=== PATIENT | female | born 1945 | race Caucasian/White ===

== ENCOUNTER → 2016-07-21 | Outpatient (CLI) | payer MEDICARE, OTHER ==
[~2016-07-21] MED LIST: AMIT25TA9 PO; AMOX-355 PO; ASPI-999 PO; ATEN-155 PO; ATEN25TA PO; BUTA1CAP3 PO; BUTA1TAB9 PO; CARB100T PO; CARB100T48 PO; CHOL20002 PO; CHOL20003 PO; CLON0.1T PO; CLON0.2T PO; CLOP75TA28 PO; CYAN10006 PO; CYAN500T2 PO; DIPH25CA79 PO; DOXA2TAB2 PO; DOXA4TAB2 PO; EST.625T PO; ESTR1TAB24 PO; FLDR.1T PO; FLUT16SP22 NS; FLUT1DIS26 INH; FURO40TA4 PO; FURO80TA3 PO; GUAI600T43 PO; HYDR5SYR PO; INDA2.5T2 PO; IPRA3AMP IH; IPRA3AMP INH; LACT1CAP64 PO; LEVO112T55 PO; LEVO250T46 PO; LEVO750T39 PO; LISI10TA2 PO; LORA10TA7 PO; LVT.025T PO; MAGN250T13 PO; MAGN400T39 PO; MELO15TA39 PO; NEBU1EAC10 MC; NEBU1EAC2 MC; NF-CARBAMX PO; NITR0.3T7 SL; NYST15CR TOP; POTA10TA14 PO; POTA10TA6 PO; PRAV20TA3 PO; PRD20T PO; PYRI100T2 PO; PYRI200T5 PO; SENN1TAB93 PO
--- NOTE | 2016-07-21 14:18 | Diagnostic Imaging Report ---
Bilateral renal ultrasound. INDICATION: Renal failure. FINDINGS: The right kidney is 7.9 cm and the left kidney is 6.8 cm in length. There is no hydronephrosis or focal lesion. The urinary bladder is not well distended with no definite abnormality. IMPRESSION: Mild atrophy of the kidneys. No hydronephrosis. Dictated by: Dictated on workstation # [id number]
== END ==
LOC: RAD 12:59
PROVIDERS: ATTEND Internal Medicine Cardiovascular Disease
DX: I73.89 Other specified peripheral vascular diseases (principal); I15.0 Renovascular hypertension; I13.0 Hypertensive heart and chronic kidney disease with heart failure and stage 1 through stage 4 chronic kidney disease, or unspecified chronic kidney disease; I70.1 Atherosclerosis of renal artery; N18.3 Chronic kidney disease, stage 3 (moderate); J43.8 Other emphysema; Z87.891 Personal history of nicotine dependence; I50.33 Acute on chronic diastolic (congestive) heart failure
CPT/HCPCS: 76770; 76775; 93923

== ENCOUNTER → 2016-09-24 | Outpatient (CLI) | payer MEDICARE, OTHER ==
[2016-09-24 08:48] LABS: BASOPHILS % (AUTO) 0 % (0-10); EOSINOPHILS # (AUTO) 0.2 10^3/uL (0.0-0.3); EOSINOPHILS % (AUTO) 3 % (0-10); LYMPHOCYTES # (AUTO) 1.1 X 10^3 (1.0-4.0); LYMPHOCYTES % (AUTO) 20 % (12-44); MEAN CORPUSCULAR HEMOGLOBIN 33 PG (25-34); MEAN CORPUSCULAR HGB CONC 33 G/DL (32-36); MEAN CORPUSCULAR VOLUME 99 FL (80-99); MEAN PLATELET VOLUME 10.1 FL (7.4-10.4); MONOCYTES # (AUTO) 0.3 X 10^3 (0.0-1.0); MONOCYTES % (AUTO) 5 % (0-12); NEUTROPHILS % (AUTO) 72 % (42-75); PLATELET COUNT 254 10^3/uL (130-400); RED BLOOD COUNT 3.22 10^6/uL (4.35-5.85); WHITE BLOOD COUNT 5.6 10^3/uL (4.3-11.0)
[2016-09-24 09:06] LABS: BILIRUBIN,TOTAL 0.3 MG/DL (0.1-1.0); CALCIUM 8.8 MG/DL (8.5-10.1); CREATININE SERUM 2.1 MG/DL (0.60-1.30); MAGNESIUM 2.1 MG/DL (1.8-2.4); TOTAL PROTEIN 6.8 G/DL (6.4-8.2)
--- NOTE | 2016-09-24 09:07 | Diagnostic Imaging Report ---
INDICATION: Shortness of air. COMPARISON: 05/22/2016 FINDINGS: Frontal and lateral radiographic views of the chest were obtained and demonstrate interval improved aeration of the left lung base. Left hemidiaphragm remains partially obscured. Right lung is relatively clear. There is no large effusion on the right. No pneumothorax is seen on either side. Cardiac silhouette and pulmonary vasculature are mildly prominent. Bony structures show no acute abnormalities. IMPRESSION: 1. Mild cardiomegaly and pulmonary vascular congestion. 2. Improved aeration in the left base, with probable residual effusion with atelectasis and/or infiltrate. Dictated by: Dictated on workstation # [id number]
[2016-09-24 09:26] LABS: THYROID STIMULATING HORMONE 12.76 UIU/ML (0.35-4.94)
== END ==
LOC: RAD 08:22
PROVIDERS: ATTEND Nurse Practitioner Family
DX: I10 Essential (primary) hypertension (principal); I35.1 Nonrheumatic aortic (valve) insufficiency; I25.10 Atherosclerotic heart disease of native coronary artery without angina pectoris; R06.02 Shortness of breath
CPT/HCPCS: 36415; 71020; 80053; 83735; 83880; 84443; 85025

== ENCOUNTER → 2016-09-28 | Outpatient (CLI) | payer MEDICARE, OTHER ==
[2016-09-28 12:02] LABS: BASOPHILS % (AUTO) 1 % (0-10); EOSINOPHILS # (AUTO) 0.1 10^3/uL (0.0-0.3); EOSINOPHILS % (AUTO) 2 % (0-10); LYMPHOCYTES # (AUTO) 0.9 X 10^3 (1.0-4.0); LYMPHOCYTES % (AUTO) 17 % (12-44); MEAN CORPUSCULAR HEMOGLOBIN 32 PG (25-34); MEAN CORPUSCULAR HGB CONC 33 G/DL (32-36); MEAN CORPUSCULAR VOLUME 96 FL (80-99); MEAN PLATELET VOLUME 10.1 FL (7.4-10.4); MONOCYTES # (AUTO) 0.3 X 10^3 (0.0-1.0); MONOCYTES % (AUTO) 6 % (0-12); NEUTROPHILS % (AUTO) 75 % (42-75); PLATELET COUNT 282 10^3/uL (130-400); RED BLOOD COUNT 3.35 10^6/uL (4.35-5.85); RED CELL DISTRIBUTION WIDTH 14.4 % (10.0-14.5); WHITE BLOOD COUNT 5.3 10^3/uL (4.3-11.0)
[2016-09-28 12:23] LABS: ALBUMIN 4.1 G/DL (3.2-4.5); BILIRUBIN,TOTAL 0.3 MG/DL (0.1-1.0); CALCIUM 8.6 MG/DL (8.5-10.1); CREATININE SERUM 2.05 MG/DL (0.60-1.30); MAGNESIUM 2.3 MG/DL (1.8-2.4)
[2016-09-28 12:42] LABS: THYROID STIMULATING HORMONE 2.31 UIU/ML (0.35-4.94)
== END ==
LOC: LAB 11:49
PROVIDERS: ATTEND Nurse Practitioner Family
DX: I10 Essential (primary) hypertension (principal); I25.10 Atherosclerotic heart disease of native coronary artery without angina pectoris; R06.02 Shortness of breath; I35.1 Nonrheumatic aortic (valve) insufficiency
CPT/HCPCS: 36415; 80053; 83735; 83880; 84443; 85025

== ENCOUNTER → 2016-10-13 | Outpatient (CLI) | payer MEDICARE, OTHER ==
[2016-10-13 17:22] LABS: CREATININE SERUM 2.35 MG/DL (0.60-1.30); MAGNESIUM 2.3 MG/DL (1.8-2.4)
== END ==
LOC: LAB 16:52
PROVIDERS: ATTEND Nurse Practitioner Family
DX: I50.33 Acute on chronic diastolic (congestive) heart failure (principal); I35.1 Nonrheumatic aortic (valve) insufficiency; I70.1 Atherosclerosis of renal artery; I25.10 Atherosclerotic heart disease of native coronary artery without angina pectoris; I65.23 Occlusion and stenosis of bilateral carotid arteries
CPT/HCPCS: 36415; 80048; 83735

== ENCOUNTER → 2016-10-19 | Outpatient (CLI) | payer MEDICARE, OTHER ==
[2016-10-19 14:08] LABS: CREATININE SERUM 1.98 MG/DL (0.60-1.30); MAGNESIUM 2.5 MG/DL (1.8-2.4); POTASSIUM 3.1 MMOL/L (3.6-5.0)
== END ==
LOC: LAB 13:19
PROVIDERS: ATTEND Nurse Practitioner Family
DX: I11.0 Hypertensive heart disease with heart failure (principal); I50.33 Acute on chronic diastolic (congestive) heart failure; I25.10 Atherosclerotic heart disease of native coronary artery without angina pectoris; I70.1 Atherosclerosis of renal artery; R06.00 Dyspnea, unspecified
CPT/HCPCS: 36415; 80048; 83735

== ENCOUNTER → 2016-10-26 | Outpatient (CLI) | payer MEDICARE, OTHER ==
[2016-10-26 16:58] LABS: CALCIUM 8.8 MG/DL (8.5-10.1); CREATININE SERUM 2.02 MG/DL (0.60-1.30); MAGNESIUM 2.2 MG/DL (1.8-2.4); POTASSIUM 4.1 MMOL/L (3.6-5.0)
== END ==
LOC: LAB 16:07
PROVIDERS: ATTEND Nurse Practitioner Family
DX: N18.3 Chronic kidney disease, stage 3 (moderate) (principal); E87.6 Hypokalemia
CPT/HCPCS: 36415; 80048; 83735

== ENCOUNTER → 2016-11-03 | Outpatient (CLI) | payer MEDICARE, OTHER ==
[2016-11-03 17:05] LABS: BILIRUBIN,TOTAL 0.3 MG/DL (0.1-1.0); CALCIUM 9.2 MG/DL (8.5-10.1); CREATININE SERUM 2.49 MG/DL (0.60-1.30); MAGNESIUM 2.4 MG/DL (1.8-2.4); POTASSIUM 3.5 MMOL/L (3.6-5.0); TOTAL PROTEIN 7.4 G/DL (6.4-8.2)
== END ==
LOC: LAB 16:28
PROVIDERS: ATTEND Internal Medicine Cardiovascular Disease
DX: I50.23 Acute on chronic systolic (congestive) heart failure (principal); I25.10 Atherosclerotic heart disease of native coronary artery without angina pectoris; I65.23 Occlusion and stenosis of bilateral carotid arteries; J43.8 Other emphysema; I15.0 Renovascular hypertension; N18.4 Chronic kidney disease, stage 4 (severe)
CPT/HCPCS: 36415; 80053; 83735

== ENCOUNTER → 2016-11-05 | Outpatient (CLI) | payer MEDICARE, OTHER ==
[2016-11-05 15:09] LABS: CALCIUM 9.2 MG/DL (8.5-10.1); CREATININE SERUM 2.55 MG/DL (0.60-1.30); POTASSIUM 3.4 MMOL/L (3.6-5.0)
== END ==
LOC: LAB 14:33
PROVIDERS: ATTEND Nurse Practitioner Family
DX: N18.4 Chronic kidney disease, stage 4 (severe) (principal)
CPT/HCPCS: 36415; 80048

== ENCOUNTER → 2016-11-10 | Outpatient (CLI) | payer MEDICARE, OTHER ==
[2016-11-10 14:23] LABS: CALCIUM 9.3 MG/DL (8.5-10.1); CREATININE SERUM 2.44 MG/DL (0.60-1.30); MAGNESIUM 2.4 MG/DL (1.8-2.4); POTASSIUM 3.1 MMOL/L (3.6-5.0)
== END ==
LOC: LAB 13:49
PROVIDERS: ATTEND Internal Medicine Cardiovascular Disease
DX: I50.32 Chronic diastolic (congestive) heart failure (principal); N17.8 Other acute kidney failure; N18.4 Chronic kidney disease, stage 4 (severe); I25.10 Atherosclerotic heart disease of native coronary artery without angina pectoris; I70.1 Atherosclerosis of renal artery; J43.8 Other emphysema; Z87.891 Personal history of nicotine dependence; I15.0 Renovascular hypertension; I73.89 Other specified peripheral vascular diseases
CPT/HCPCS: 36415; 80048; 83735

== ENCOUNTER → 2016-11-18 | Outpatient (CLI) | payer MEDICARE, OTHER ==
[2016-11-18 16:02] LABS: BASOPHILS % (AUTO) 1 % (0-10); EOSINOPHILS % (AUTO) 1 % (0-10); LYMPHOCYTES # (AUTO) 0.6 X 10^3 (1.0-4.0); LYMPHOCYTES % (AUTO) 9 % (12-44); MEAN CORPUSCULAR HEMOGLOBIN 33 PG (25-34); MEAN CORPUSCULAR HGB CONC 33 G/DL (32-36); MEAN CORPUSCULAR VOLUME 102 FL (80-99); MEAN PLATELET VOLUME 11.1 FL (7.4-10.4); MONOCYTES # (AUTO) 0.4 X 10^3 (0.0-1.0); MONOCYTES % (AUTO) 6 % (0-12); NEUTROPHILS # (AUTO) 5.4 X 10^3 (1.8-7.8); NEUTROPHILS % (AUTO) 83 % (42-75); PLATELET COUNT 239 10^3/uL (130-400); RED BLOOD COUNT 3.34 10^6/uL (4.35-5.85); RED CELL DISTRIBUTION WIDTH 14.1 % (10.0-14.5); WHITE BLOOD COUNT 6.5 10^3/uL (4.3-11.0)
[2016-11-18 16:18] LABS: BILIRUBIN,URINE NEGATIVE (NEGATIVE); KETONES,URINE NEGATIVE (NEGATIVE); LEUKOCYTE ESTERASE ,URINE NEGATIVE (NEGATIVE); NITRITE,URINE NEGATIVE (NEGATIVE); PH,URINE 5 (5-9); PROTEIN,URINE NEGATIVE (NEGATIVE); UROBILINOGEN,URINE NORMAL (NORMAL)
[2016-11-18 16:26] LABS: ALBUMIN 4.1 G/DL (3.2-4.5); CALCIUM 9.4 MG/DL (8.5-10.1); CREATININE SERUM 2.45 MG/DL (0.60-1.30); PHOSPHORUS 4.9 MG/DL (2.3-4.7)
[2016-11-18 16:33] LABS: WBC,URINE RARE /HPF
== END ==
LOC: LAB 15:23
PROVIDERS: ATTEND Internal Medicine Nephrology
DX: N18.4 Chronic kidney disease, stage 4 (severe) (principal)
CPT/HCPCS: 36415; 80069; 81000; 82570; 84156; 85025

== ENCOUNTER → 2016-11-18 | Outpatient (CLI) | payer MEDICARE, OTHER ==
[2016-11-18 16:24] LABS: CALCIUM 9.4 MG/DL (8.5-10.1); CREATININE SERUM 2.45 MG/DL (0.60-1.30); MAGNESIUM 2.4 MG/DL (1.8-2.4)
== END ==
LOC: LAB 15:28
PROVIDERS: ATTEND Nurse Practitioner Family
DX: N18.4 Chronic kidney disease, stage 4 (severe) (principal)
CPT/HCPCS: 36415; 80048; 83735

== ENCOUNTER → 2017-07-08 | Outpatient (CLI) | payer MEDICARE, OTHER ==
--- NOTE | 2017-07-08 15:21 | Diagnostic Imaging Report ---
INDICATION: COUGH COMPARISON: 09/24/2016 FINDINGS: Frontal and lateral views of the chest demonstrate mild to moderate cardiomegaly. Pulmonary vasculature is within normal limits. Right-sided dual-lumen central venous catheter is identified with tip extending just below the cavoatrial junction. The lungs are clear. There are no signs of infiltrate, pleural effusions or pneumothoraces. The visualized osseous structures show no acute abnormalities. IMPRESSION: 1. Cardiomegaly, but no evidence of failure or focal infiltrate. Dictated by: Dictated on workstation # [id number]
== END ==
LOC: RAD 14:34
PROVIDERS: ATTEND Internal Medicine
DX: I51.7 Cardiomegaly (principal)
CPT/HCPCS: 71046

== ENCOUNTER → 2017-07-20 | Outpatient (CLI) | payer MEDICARE, OTHER ==
--- NOTE | 2017-07-21 12:35 | Diagnostic Imaging Report ---
EXAMINATION: Digital mammogram. INDICATION: Bilateral screening This study was compared to prior exam of 09/19/2014 and 08/30/2013. At this time there are no current complaints. The current study was also evaluated with a Computer Aided Detection (CAD) system. In the interval since the prior exam a radiopaque port has been inserted over the right chest. The overall appearance of the breasts has not changed significantly otherwise. There are scattered fibroglandular densities in both breasts which could obscure a lesion. There is no primary or secondary sign of malignancy noted. IMPRESSION: 1. There is no evidence of malignancy. 2. There has been interval insertion of a right-sided port. ACR BI-RADS Category 1: Negative. Result letter will be mailed to the patient. Note: At least 10% of breast cancer is not imaged by mammography. Dictated by: Dictated on workstation # [id number]
== END ==
LOC: RAD 11:00
PROVIDERS: ATTEND Internal Medicine
DX: Z12.31 Encounter for screening mammogram for malignant neoplasm of breast (principal)
CPT/HCPCS: 77067

== ENCOUNTER → 2019-01-25 | Outpatient (CLI) | payer MEDICARE ==
[~2019-01-25] MED LIST changes: +CYAN-41 PO; -CYAN10006 PO; -CYAN500T2 PO; +CYAN500T62 PO; -IPRA3AMP IH; -IPRA3AMP INH; +IPRA3AMP31 IH; +IPRA3AMP31 INH; +RT-ALBUTEROL SULF 2.5 MG/3 ML PRE-MIX VIAL INH ONE; +RT-ALBUTEROL SULF 2.5 MG/3 ML PRE-MIX VIAL ONE
== END ==
LOC: RT 15:16
PROVIDERS: ATTEND Nurse Practitioner Family
DX: J44.9 Chronic obstructive pulmonary disease, unspecified (principal); J98.4 Other disorders of lung; N18.3 Chronic kidney disease, stage 3 (moderate); Z87.891 Personal history of nicotine dependence
CPT/HCPCS: 94060; 94726; 94729

== ENCOUNTER → 2019-02-09 | Outpatient (CLI) | payer MEDICARE ==
[~2019-02-09] MED LIST changes: -RT-ALBUTEROL SULF 2.5 MG/3 ML PRE-MIX VIAL INH ONE; -RT-ALBUTEROL SULF 2.5 MG/3 ML PRE-MIX VIAL ONE
--- NOTE | 2019-02-09 16:44 | Diagnostic Imaging Report ---
PROCEDURE: CT chest without contrast. TECHNIQUE: Multiple contiguous axial images were obtained through the chest without the use of intravenous contrast. Auto Exposure Controls were utilized during the CT exam to meet ALARA standards for radiation dose reduction. INDICATION: Restrictive lung disease. COMPARISON: Radiographs of the chest dated July 08, 2017. FINDINGS: Mediastinal and axillary lymph nodes appear increased in number, though none are definitely pathologically enlarged. Most prominent lymph nodes within the right tracheobronchial region measuring 0.7 cm in short dimension. Mild scattered vascular calcifications without aneurysmal dilatation of the thoracic aorta. Trace pericardial fluid. The heart is borderline enlarged. No pleural effusion. No pneumothorax. Minimal left basilar scarring and/or atelectasis, greatest within the lingula. Very minimal background emphysematous changes, particularly paraseptal emphysematous changes. The lungs are otherwise clear. The trachea is patent. Atrophy of the right kidney. The visualized upper abdomen is otherwise unremarkable. S-shaped curvature of the visualized thoracolumbar spine. No acute osseous abnormality. IMPRESSION: Minimal background emphysematous changes without significant interstitial lung disease. Borderline cardiomegaly with trace pericardial effusion. Atrophy of the right kidney. Additional findings as above. Dictated by: Dictated on workstation # [id number]
== END ==
LOC: RAD 14:53
PROVIDERS: ATTEND Nurse Practitioner Family
DX: J98.4 Other disorders of lung (principal); I51.7 Cardiomegaly; N26.1 Atrophy of kidney (terminal); N18.3 Chronic kidney disease, stage 3 (moderate); G47.36 Sleep related hypoventilation in conditions classified elsewhere
CPT/HCPCS: 71250

== ENCOUNTER → 2019-03-14 | Outpatient (CLI) | payer MEDICARE ==
--- NOTE | 2019-03-14 12:47 | Diagnostic Imaging Report ---
EXAMINATION: Left lateral decubitus chest at 1205P.M. INDICATION: bilateral pe pneumonia. A single left lateral decubitus view was obtained. As noted on the right lateral decubitus chest exam performed in conjunction with this study there is slight blunting of the left costophrenic angle. This may secondary to a very small amount of fluid. The left lung itself is generally clear. IMPRESSION: There is a very small left pleural effusion. Dictated by: Dictated on workstation # [id number]
--- NOTE | 2019-03-14 12:48 | Diagnostic Imaging Report ---
EXAMINATION: Right lateral decubitus chest. INDICATION: Restrictive lung disease. FINDINGS: The previous PA and lateral chest exam performed on 07/08/2017 noted cardiomegaly but failed to show any sign of an acute abnormality. The CT chest exam of 02/09/2019 noted minimal background emphysematous changes without significant interstitial lung disease. There is also borderline cardiomegaly with a trace pericardial effusion. No other abnormality is identified. On this study, the heart seems stable in size. There is no free pleural fluid layering in either lung. The lungs where visualized are generally clear. IMPRESSION: There is no evidence for an acute cardiopulmonary abnormality. In particular, there is no sign of a pleural effusion. Dictated by: Dictated on workstation # [id number]
== END ==
LOC: RAD 11:41
PROVIDERS: ATTEND Internal Medicine
DX: J18.9 Pneumonia, unspecified organism (principal); J90 Pleural effusion, not elsewhere classified
CPT/HCPCS: 71046

== ENCOUNTER → 2019-11-16 | Outpatient (CLI) | payer MEDICARE ==
[~2019-11-16] MED LIST changes: +PYRI100T10 PO; -PYRI100T2 PO
--- NOTE | 2019-11-17 10:11 | Diagnostic Imaging Report ---
INDICATION: Digital screening with CAD. COMPARISON: 07/2017, 09/2014 and 08/2013. FINDINGS: Scattered fibroglandular densities, unchanged. No breast mass, spiculated lesion, architectural distortion, suspicious calcifications or evidence for neoplasm. IMPRESSION: Stable negative mammograms. BI-RADS Category 1 ACR BI-RADS Category 1: Negative. Result letter will be mailed to the patient. Note: At least 10% of breast cancer is not imaged by mammography. Dictated by: Dictated on workstation # [id number]
== END ==
LOC: RAD 15:21
PROVIDERS: ATTEND Internal Medicine
DX: Z12.31 Encounter for screening mammogram for malignant neoplasm of breast (principal)
CPT/HCPCS: 77063; 77067

== ENCOUNTER → 2020-05-23 | Outpatient (CLI) | payer MEDICARE ==
[~2020-05-23] MED LIST changes: +CLN.1T PO; +CLN.2T PO; -CLON0.1T PO; -CLON0.2T PO; -CYAN500T62 PO; +CYAN500T64 PO
== END ==
LOC: WOUNDCARE 09:29
PROVIDERS: ATTEND Surgery
DX: S80.11XA Contusion of right lower leg, initial encounter (principal); L97.212 Non-pressure chronic ulcer of right calf with fat layer exposed; N18.6 End stage renal disease; I89.0 Lymphedema, not elsewhere classified; I70.232 Atherosclerosis of native arteries of right leg with ulceration of calf
CPT/HCPCS: 10140; G0463

== ENCOUNTER → 2020-05-27 | Outpatient (CLI) | payer MEDICARE | LOC: WOUNDCARE 09:41 | PROVIDERS: ATTEND Surgery | DX: I96 Gangrene, not elsewhere classified (principal); S80.11XA Contusion of right lower leg, initial encounter; I89.0 Lymphedema, not elsewhere classified; N18.6 End stage renal disease; I70.232 Atherosclerosis of native arteries of right leg with ulceration of calf; L97.212 Non-pressure chronic ulcer of right calf with fat layer exposed | CPT/HCPCS: 99213 ==

== ENCOUNTER → 2020-06-11 | Outpatient (CLI) | payer MEDICARE | LOC: WOUNDCARE 14:35 | PROVIDERS: ATTEND Surgery | DX: I89.0 Lymphedema, not elsewhere classified (principal); I70.232 Atherosclerosis of native arteries of right leg with ulceration of calf; S80.11XA Contusion of right lower leg, initial encounter; I96 Gangrene, not elsewhere classified; N18.6 End stage renal disease; L97.212 Non-pressure chronic ulcer of right calf with fat layer exposed | CPT/HCPCS: 11042; A6260; G0463 ==

== ENCOUNTER → 2020-06-21 | Outpatient (CLI) | payer MEDICARE | LOC: WOUNDCARE 09:24 | PROVIDERS: ATTEND Surgery | DX: S80.11XA Contusion of right lower leg, initial encounter (principal); X58.XXXA Exposure to other specified factors, initial encounter; I89.0 Lymphedema, not elsewhere classified; I96 Gangrene, not elsewhere classified; I70.232 Atherosclerosis of native arteries of right leg with ulceration of calf; L97.212 Non-pressure chronic ulcer of right calf with fat layer exposed; N18.6 End stage renal disease | CPT/HCPCS: 11042; G0463 ==

== ENCOUNTER → 2020-06-27 | Outpatient (CLI) | payer MEDICARE | LOC: WOUNDCARE 13:51 | PROVIDERS: ATTEND Orthopaedic Surgery Hand Surgery | DX: L97.212 Non-pressure chronic ulcer of right calf with fat layer exposed (principal); N18.6 End stage renal disease; I89.0 Lymphedema, not elsewhere classified; I70.232 Atherosclerosis of native arteries of right leg with ulceration of calf; S80.11XA Contusion of right lower leg, initial encounter | CPT/HCPCS: 11042; G0463 ==

== ENCOUNTER → 2020-07-04 | Outpatient (CLI) | payer MEDICARE ==
[~2020-07-04] MED LIST changes: -CYAN500T64 PO; +CYAN500T8 PO
== END ==
LOC: WOUNDCARE 13:59
PROVIDERS: ATTEND Surgery
DX: S80.11XA Contusion of right lower leg, initial encounter (principal); I96 Gangrene, not elsewhere classified; I89.0 Lymphedema, not elsewhere classified; I70.232 Atherosclerosis of native arteries of right leg with ulceration of calf; L97.212 Non-pressure chronic ulcer of right calf with fat layer exposed; N18.6 End stage renal disease
CPT/HCPCS: 11042; G0463

== ENCOUNTER → 2020-07-11 | Outpatient (CLI) | payer MEDICARE | LOC: WOUNDCARE 14:07 | PROVIDERS: ATTEND Surgery | DX: I70.232 Atherosclerosis of native arteries of right leg with ulceration of calf (principal); S80.11XA Contusion of right lower leg, initial encounter; I96 Gangrene, not elsewhere classified; L97.212 Non-pressure chronic ulcer of right calf with fat layer exposed; N18.6 End stage renal disease; I89.0 Lymphedema, not elsewhere classified | CPT/HCPCS: 11042; A6197; G0463 ==

== ENCOUNTER → 2020-07-18 | Outpatient (CLI) | payer MEDICARE | LOC: WOUNDCARE 14:03 | PROVIDERS: ATTEND Surgery | DX: L97.212 Non-pressure chronic ulcer of right calf with fat layer exposed (principal); N18.6 End stage renal disease; I89.0 Lymphedema, not elsewhere classified; I70.232 Atherosclerosis of native arteries of right leg with ulceration of calf; S80.11XA Contusion of right lower leg, initial encounter | CPT/HCPCS: 99212 ==

== ENCOUNTER → 2020-11-27 | Outpatient (CLI) | payer MEDICARE ==
[~2020-11-27] MED LIST changes: +BUTA-235 PO; -BUTA1TAB9 PO; -LISI10TA2 PO; +LISI10TA25 PO
--- NOTE | 2020-11-27 18:45 | Diagnostic Imaging Report ---
INDICATION: Chest congestion and weakness. Apical lordotic chest obtained at 6:15 PM and compared to 0612 p.m. same day There is cardiomegaly again noted with central vascular congestion and some minimal bibasilar infiltrate or atelectasis. There is no apical lesion identified. There is no pneumothorax. IMPRESSION: Apical lordotic view demonstrates no overt apical lesion. There is cardiomegaly with central vascular congestion and mild bibasilar infiltrate versus atelectasis. Dictated by: Dictated on workstation # [id number]
--- NOTE | 2020-11-27 19:09 | Diagnostic Imaging Report ---
INDICATION: Pneumonia, congestion COMPARISON STUDY: Chest from 6:00 this morning. FINDINGS: Frontal view of the chest demonstrates improving cardiomegaly. Pulmonary congestion and edema have nearly resolved. No pleural effusion is present. A right subclavian stent extending into the axillary region is again identified. IMPRESSION: 1. Improving pulmonary congestion and edema. Heart size has decreased. Dictated by: Dictated on workstation # [id number]
== END ==
LOC: RAD 17:57
PROVIDERS: ATTEND Nurse Practitioner Family
DX: J16.8 Pneumonia due to other specified infectious organisms (principal); I51.7 Cardiomegaly; I12.9 Hypertensive chronic kidney disease with stage 1 through stage 4 chronic kidney disease, or unspecified chronic kidney disease; N18.9 Chronic kidney disease, unspecified
CPT/HCPCS: 71045; 71046

== ENCOUNTER 2020-12-27 10:59 | Outpatient (RCR) | payer MEDICARE ==
[2020-12-26 11:05] VITALS: BP 177/72
[2020-12-27 11:12] VITALS: BP 178/66
== END 2020-12-27 11:12 | disposition home or self-care (01) ==
LOC: SDC 10:59
PROVIDERS: ATTEND Internal Medicine
DX: R32 Unspecified urinary incontinence (principal)
CPT/HCPCS: 82570; 84156; 99211

== ENCOUNTER 2021-08-04 16:12 | Emergency (ER) | payer MEDICARE ==
[~2021-08-04] VITALS: Ht 154 cm; Wt 61.0 kg
[~2021-08-04 16:12] MED LIST changes: -LEVO250T46 PO; +LVF250T PO; +POTA-160 PO; +POTA-164 PO; -POTA10TA14 PO; -POTA10TA6 PO
--- NOTE | 2021-08-04 16:49 | ED Respiratory ---
General Chief Complaint: Respiratory Problems Stated Complaint: CONGESTION, SOB, COVID- WEEK AGO Nursing Triage Note: PT TO ER BY WC WITH C/O SOB. PT WENT TO DAILYSIS TODAY AFTER MISSING LAST WEDNESDAY DUE TO SICKNESS. PTS FLU+ LAST WEEK. PT GIVEN ABX FOR BACTERIAL BRONCHITIS FROM PCP. PT HAD O2 ON AT HOME BUT DOES NOT HAVE PORTABLE TANK Source: patient, family (daughter) Exam Limitations: no limitations (STACEY MCMAHON MD) History of Present Illness Date Seen by Provider: Aug 04, 2021 Time Seen by Provider: 16:35 Initial Comments Patient is a 76-year-old female with a history of end-stage renal disease on hemodialysis who presents to the emergency department with a chief complaint of shortness of breath. Patient states that she has been sick since last Wednesday. She saw her primary care provider last Wednesday and was placed on antibiotics. She states her last day of antibiotics is today. Patient normally dialyzes on Wednesdays and Fridays, she missed last Wednesday due to illness so dialyzed this morning. She dialyzed for about 2 hours and 45 minutes which is her standard. She does not believe she was dialyzed back to her "dry weight". Patient states her cough has been severe since last Wednesday. It is mostly dry. Her was diagnosed with influenza last week. Patient complains of fatigue and malaise. No headache. No nausea. No chest pain. No diarrhea. She still makes urine, denies dysuria. She states her legs are swollen. She does have a history of congestive heart failure. She does have cardiac stents. Her stereotyper is Dr. Ángel Pretty at [facility] in [place]. Her jewel bearing grinder is Dr. Ma at [facility] in [place]. Patient states she does wear oxygen at home at 1 to 2 L. She does not have portable oxygen therefore traveling to dialysis and from dialysis she was on room air. Nursing staff reports room air oxygen saturations at 53% on arrival to the ER. All other review of systems reviewed and negative except as stated. Timing/Duration: week, getting worse Severity: moderate Prior Episodes/Possible Cause: illness exposure ( with influenza) Modifying Factors: Worse With Coughing; Improves With Oxygen, Improves With Rest Associated Symptoms: chest pain/soreness, cough, shortness of breath, wheezing (STACEY MCMAHON MD) Allergies and Home Medications Allergies Coded Allergies: benzocaine (Verified Allergy, Severe, ANAPHYLAXIS, 04/03/16) "Hurricane [place]" Shellfish (Verified Allergy, Unknown, 10/25/15) Patient Home Medication List Home Medication List Reviewed: Yes (STACEY MCMAHON MD) Amitriptyline Hcl (Amitriptyline Hcl) 25 Mg Tablet, 25 MG PO HS, (Reported) Entered as Reported by: BEATRIZ CABAN on 07/20/11 2311 Aspirin (Aspirin) 81 Mg Tab.chew, 81 MG PO DAILY, (Reported) Entered as Reported by: LALO SANTORO on 03/31/16 1418 Atenolol (Atenolol) 25 Mg Tablet, 25 MG PO BID Prescribed by: GIOVANNI LONG on 04/04/16 155 Butalb/Acetaminophen/Caffeine (Wyrgvz-Gzcqczdt-Aaiy 50-325-40) 1 Each Tablet, 1 TAB PO HS, (Reported) Entered as Reported by: WALLACE WU on 03/23/16 1046 Carbamazepine (Carbamazepine ER) 100 Mg Tab.er.12h, 100 MG PO DAILY, (Reported) Entered as Reported by: WALLACE WU on 03/23/16 1046 Cholecalciferol (Vitamin D3) (Vitamin D-3) 2,000 Unit Capsule, 2,000 UNIT PO DAILY, (Reported) Entered as Reported by: WALLACE WU on 03/23/16 1046 Clonidine HCl (Clonidine HCl) 0.2 Mg Tablet, 0.2 MG PO BID, (Reported) Entered as Reported by: WALLACE WU on 03/23/16 1046 Clopidogrel Bisulfate (Clopidogrel) 75 Mg Tablet, 75 MG PO DAILY, (Reported) Entered as Reported by: WALLACE WU on 10/22/15 1557 Cyanocobalamin (Vitamin B-12) (Vitamin B-12) 1,000 Mcg Tablet, 1,000 MCG PO DAILY, (Reported) Entered as Reported by: WALLACE WU on 03/23/16 1046 Doxazosin Mesylate (Doxazosin Mesylate) 4 Mg Tablet, 6 MG PO BID Prescribed by: GIOVANNI LONG on 04/04/16 155 Estradiol (Estradiol Tablet) 1 Mg Tablet, 1 MG PO DAILY, (Reported) Entered as Reported by: WALLACE WU on 09/16/15 1100 Fluticasone Propionate (Fluticasone Propionate) 16 Gm [place].susp, 2 SPRAY NS HS, (Reported) Entered as Reported by: WALLACE WU on 09/16/15 1100 Fluticasone/Salmeterol (Advair 250-50 Diskus) 1 Each Blst.w.dev, 1 PUFF INH BID PRN for SHORTNESS OF BREATH, (Reported) Entered as Reported by: WALLACE WU on 10/22/15 1557 Furosemide (Furosemide) 80 Mg Tablet, 80 MG PO DAILY, (Reported) Entered as Reported by: LALO SANTORO on 03/31/16 1418 Ipratropium/Albuterol Sulfate (Iprat-Albut 0.5-3(2.5) mg/3 ml) 3 Ml Ampul.neb, 3 ML IH Q4H PRN for SHORTNESS OF BREATH, (Reported) Entered as Reported by: WALLACE WU on 03/23/16 1046 Lactobacillus Combo No.11 (Probiotic) 1 Each Cap.sprink, 1 EACH PO DAILY, (Reported) Entered as Reported by: FRED OFX on 05/17/16 1149 Levofloxacin (Levofloxacin) 750 Mg Tablet, 750 MG PO Q48H@11 Prescribed by: MICHELLE MORATAYA on 05/22/16 1154 Levothyroxine Sodium (Levothyroxine Sodium) 112 Mcg Tablet, 112 MCG PO DAILY, (Reported) Entered as Reported by: WALLACE WU on 09/16/15 1100 Loratadine (Loratadine) 10 Mg Tablet, 10 MG PO DAILY, (Reported) Entered as Reported by: WALLACE WU on 03/23/16 1046 Nitroglycerin (Nitroglycerin) 0.3 Mg Tab.subl, 0.3 MG SL for PAIN, (Reported) Entered as Reported by: FRED FOX on 05/17/16 1151 Nystatin (Nystatin) 15 Gm Cream..g., TOP BID PRN for DRY SKIN, (Reported) Entered as Reported by: WALLACE WU on 09/16/15 1100 Potassium Chloride (Klor-Con 10) 10 Meq Tablet.er, 20 MEQ PO DAILY@0700 Prescribed by: GIOVANNI LONG on 04/04/16 1559 Pravastatin Sodium (Pravastatin Sodium) 20 Mg Tablet, 20 MG PO HS, (Reported) Entered as Reported by: WALLACE WU on 10/22/15 1557 Pyridoxine HCl (Vitamin B-6) 100 Mg Tablet, 100 MG PO DAILY, (Reported) Entered as Reported by: WALLACE WU on 03/23/16 1046 Sennosides/Docusate Sodium (Senna-Docusate Sodium Tablet) 1 Each Tablet, 1 EACH PO DAILY, (Reported) Entered as Reported by: FRED FOX on 05/17/16 1150 Review of Systems Review of Systems Constitutional: see HPI EENTM: no symptoms reported Respiratory: cough, dyspnea on exertion, short of breath Cardiovascular: chest pain ("fullness"), edema (bilateral feet) Gastrointestinal: no symptoms reported Genitourinary: no symptoms reported : No Musculoskeletal: no symptoms reported Skin: no symptoms reported (STACEY MCMAHON MD) All Other Systems Reviewed Negative Unless Noted: Yes (STACEY MCMAHON MD) Past Nviwcmu-Tfdmpa-Dtmblm Hx Patient Social History Tobacco Use?: No Smoking Status: Former Smoker Substance use?: No Alcohol Use?: No Pt feels they are or have been: No (STACEY MCMAHON MD) Immunizations Up To Date Tetanus Booster (TDap): Unknown PED Vaccines UTD: Yes Influenza Vaccine Up-to-Date: Yes; Up-to-Date First/Initial COVID19 Vaccinat: 07/24 Second COVID19 Vaccination [place]: 08/22 COVID19 Vaccine Head Grinder: DIGNA (STACEY MCMAHON MD) Seasonal Allergies Seasonal Allergies: Yes (STACEY MCMAHON MD) Past Medical History Surgery/Hospitalization HX: CKD, DIALYSIS, HTN, HYPOTHYROID, COPD, CHF Bladder Surgery, Coronary Stent, Hysterectomy, Neurological, Oophorectomy COPD Currently Using CPAP: No Currently Using BIPAP: No Coronary Artery Disease, High Cholesterol, Hypertension, Peripheral Vascular Headaches /Migraines, Neuropathy Reproductive Disorders: No (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 1.0oz. 67.586794so; 25.00 BMI Method:Stated General Appearance: mild distress Eyes: Bilateral Eye Normal Inspection, Bilateral Eye PERRL, Bilateral Eye EOMI HEENT: PERRL/EOMI, other (dry oral mucosa) Neck: supple, normal inspection Respiratory: no respiratory distress, accessory muscle use, crackles (left base), other (conversational dyspnea) Cardiovascular: regular rate, rhythm Gastrointestinal: non tender, soft Extremities: normal range of motion, pedal edema (1-2+), other (AV Fistula RUE with bandage) Neurologic/Psychiatric: no motor/sensory deficits, alert, normal mood/affect, oriented x 3 Skin: normal color, warm/dry (STACEY MCMAHON MD) Focused Exam Lactate Level 08/04/21 17:13: Lactic Acid Level 0.93 (SNIDY MCCOY MD) Lactic Acid Level Laboratory Tests Test 08/04/21 17:13 Lactic Acid Level 0.93 MMOL/L (0.50-2.00) (SINDY MCCOY MD) Progress/Results/Core Measures Suspected Sepsis SIRS Temperature: Pulse: 93 Respiratory Rate: 27 Laboratory Tests 08/04/21 16:25: White Blood Count 4.9 Blood Pressure 186 /75 Mean: 112 08/04/21 17:13: Lactic Acid Level 0.93 Laboratory Tests 08/04/21 16:25: Creatinine 1.25, INR Comment 1.0, Platelet Count 238, Total Bilirubin 0.4 (STACEY MCMAHON MD) Results/Orders Lab Results Laboratory Tests Test 08/04/21 16:25 08/04/21 16:59 08/04/21 17:13 08/04/21 17:40 Range/Units White Blood Count 4.9 4.3-11.0 10^3/uL Red Blood Count 3.41 L 3.80-5.11 10^6/uL Hemoglobin 11.5 11.5-16.0 g/dL Hematocrit 34 L 35-52 % Mean Corpuscular Volume 99 80-99 fL Mean Corpuscular Hemoglobin 34 25-34 pg Mean Corpuscular Hemoglobin Concent 34 32-36 g/dL Red Cell Distribution Width 13.1 10.0-14.5 % Platelet Count 238 130-400 10^3/uL Mean Platelet Volume 10.5 9.0-12.2 fL Immature Granulocyte % (Auto) 0 % Neutrophils (%) (Auto) 79 H 42-75 % Lymphocytes (%) (Auto) 16 12-44 % Monocytes (%) (Auto) 4 0-12 % Eosinophils (%) (Auto) 0 0-10 % Basophils (%) (Auto) 0 0-10 % Neutrophils # (Auto) 3.9 1.8-7.8 10^3/uL Lymphocytes # (Auto) 0.8 L 1.0-4.0 10^3/uL Monocytes # (Auto) 0.2 0.0-1.0 10^3/uL Eosinophils # (Auto) 0.0 0.0-0.3 10^3/uL Basophils # (Auto) 0.0 0.0-0.1 10^3/uL Immature Granulocyte # (Auto) 0.0 0.0-0.1 10^3/uL Prothrombin Time 13.6 12.2-14.7 SEC INR Comment 1.0 0.8-1.4 Activated Partial Thromboplast Time 43 H 24-35 SEC Sodium Level 138 135-145 MMOL/L Potassium Level 2.9 L 3.6-5.0 MMOL/L Chloride Level 94 L 98-107 MMOL/L Carbon Dioxide Level 32 21-32 MMOL/L Anion Gap 12 5-14 MMOL/L Blood Urea Nitrogen 15 7-18 MG/DL Creatinine 1.25 0.60-1.30 MG/DL Estimat Glomerular Filtration Rate 44 BUN/Creatinine Ratio 12 Glucose Level 121 H 70-105 MG/DL Calcium Level 8.4 L 8.5-10.1 MG/DL Corrected Calcium 8.4 L 8.5-10.1 MG/DL Total Bilirubin 0.4 0.1-1.0 MG/DL Aspartate Amino Transf (AST/SGOT) 25 5-34 U/L Alanine Aminotransferase (ALT/SGPT) 26 0-55 U/L Alkaline Phosphatase 105 40-136 U/L Troponin I < 0.028 <0.028 NG/ML C-Reactive Protein High Sensitivity 10.03 H 0.00-0.50 MG/DL B-Type Natriuretic Peptide 949.1 H <100.0 PG/ML Total Protein 7.7 6.4-8.2 GM/DL Albumin 4.0 3.2-4.5 GM/DL Procalcitonin 0.47 H <0.10 NG/ML Influenza Type A (RT-PCR) Detected H Not Detecte Influenza Type B (RT-PCR) Not Detected Not Detecte SARS-CoV-2 RNA (RT-PCR) Not Detected Not Detecte Lactic Acid Level 0.93 0.50-2.00 MMOL/L Blood Gas Puncture Site LWRIST Blood Gas Patient Temperature 36 Arterial Blood pH 7.47 H 7.37-7.43 Arterial Blood Partial Pressure CO2 47 H 35-45 MMHG Arterial Blood Partial Pressure O2 23 *L 79-93 MMHG Arterial Blood HCO3 34 H 23-27 MMOL/L Arterial Blood Total CO2 35.8 H 21.0-31.0 MMOL/L Arterial Blood Oxygen Saturation 45 L 94-100 % Arterial Blood Base Excess 9.9 H -2.5-2.5 MMOL/L Aj Test POS Blood Gas Ventilator Setting NO Blood Gas Inspired Oxygen 2L (SINDY MCCOY MD) Medications Given in ED Current Medications Medications Dose Ordered Sig/Javan Route Start Time Stop Time Status Last Admin Dose Admin Ondansetron HCl 4 mg ONCE ONCE IVP 08/04/21 18:00 08/04/21 18:01 DC 08/04/21 17:50 4 MG (SINDY MCCOY MD) Vital Signs/I&O 08/04/21 08/04/21 08/04/21 16:15 16:25 16:35 Temp 36.0 Pulse 93 Resp 27 B/P (MAP) 186/75 (112) Pulse Ox 98 96 O2 Delivery Nasal Cannula Nasal Cannula Nasal Cannula O2 Flow Rate 3.00 3.00 3.00 (SINDY MCCOY MD) Vital Signs/I&O Capillary Refill : (STACEY MCMAHON MD) Blood Pressure Mean: 112 Progress Note : Time: 18:06 Progress Note Reassessed patient; she is on 3L O2 satting 92-93%. No respiratory distress/increased work of breathing. She has moderate pulmonary edema on CXR, BNP at 900. I spoke with her Lead Burner Supervisor, Dr Ma ([phone]). I advised him of all of her labs and VS (181/74, HR 88; pulse ox 94%) . He states that if she is comfortable on her 3L and in no distress, she can be sent home. He did not want me to address potassium - he states post-dialysis it will be a little low and she will come up on her own. He stated that they (family) should call the dialysis center tomorrow and get an additional 2h of chair time for dialysis tomorrow. The patient is comfortable with this. Her lactic acid is neg. CRP elevated consistent with her Influenza A diagnosis. CBC normal. She has cough medicine from her PCP. We are going to call [employer] and get her a portable oxygen tank for home. Daughter is also comfortable with the plan of care. All questions have been sought and answered. (STACEY MCMAHON MD) ECG Initial ECG Impression Date: Aug 04, 2021 Initial ECG Impression Time: 16:59 Initial ECG Rate: 84 Initial ECG Rhythm: Normal Sinus Initial ECG Intervals AR 244 QRS 96 QTc 477 Comment First-degree AV block, poor R wave progression over the precordium, no ectopy; no ST segment elevation or depression is noted (STACEY MCMAHON MD) Diagnostic Imaging Diagonstic Imaging: Xray Plain Films/CT/US/NM/MRI: chest Comments NAME: MICHELL VARGAS [facility] REC#: [id number] PT STATUS: REG ER : 1945 PHYSICIAN: STACEY MCMAHON MD ADMIT DATE: 08/04/21/ER Draft Date of Exam:08/04/21 CHEST 1 VIEW, AP/PA ONLY EXAMINATION: Portable chest. Comparison made with a prior study from 11/27/2020. INDICATION: Shortness of breath and hypoxia. FINDINGS: There is abnormal enlargement of the cardiac silhouette with abnormal prominence of the pulmonary vascular markings suggesting volume overload and interstitial edema. There may be small effusions. There is no dense alveolar consolidation or pneumothorax. There are vascular stents within the right neck and the right subclavian and axillary region. IMPRESSION: 1. Enlarged cardiac silhouette with abnormal pulmonary vascular prominence and probable small effusions. Findings are compatible with volume overload and interstitial edema. Dictated on workstation # [id number] Dict: 08/04/211735 Trans: 08/04/211737 [id number] Interpreted by: SONIA MEJIA MD Electronically signed by: (STACEY MCMAHON MD) Departure Communication (Admissions) Time/Spoke to Consulting Phy: 17:45 Dr Ma (STACEY MCMAHON MD) Impression Primary Impression: Influenza A Additional Impression: Pulmonary edema Qualified Codes: J81.0 - Acute pulmonary edema Disposition: HOME, SELF-CARE Condition: Stable Departure-Patient Inst. Decision time for Depature: 18:13 (STACEY MCMAHON MD) Referrals: MICHELLE MORATAYA DO (PCP/Family) Primary Care Physician Patient Instructions: Flu, Adult ED Add. Discharge Instructions: Please call [facility] tomorrow morning first thing; Dr Ma wanted you to get an additional 2H of dialysis tomorrow. If they cannot get you in, Call his office and see if he can find another way to get this scheduled. Stay on your Oxygen at 3L at all times. Try and keep yup with your diet and get adequate fluid intake. Tylenol for pain as needed. Return to the ER for any worsening shortness of breath, chest pain or any other emergent, concerning symptoms. Copy Copies To 1: MICHELLE MORATAYA KATHRYN M MD Aug 04, 2021 16:49 SINDY MCCOY MD Aug 04, 2021 18:25
[2021-08-04 16:51] LABS: BASOPHILS % (AUTO) 0 % (0-10); EOSINOPHILS % (AUTO) 0 % (0-10); HEMATOCRIT 34 % (35-52); HEMOGLOBIN 11.5 g/dL (11.5-16.0); LYMPHOCYTES # (AUTO) 0.8 10^3/uL (1.0-4.0); LYMPHOCYTES % (AUTO) 16 % (12-44); MEAN CORPUSCULAR HEMOGLOBIN 34 pg (25-34); MEAN CORPUSCULAR HGB CONC 34 g/dL (32-36); MEAN CORPUSCULAR VOLUME 99 fL (80-99); MEAN PLATELET VOLUME 10.5 fL (9.0-12.2); MONOCYTES # (AUTO) 0.2 10^3/uL (0.0-1.0); MONOCYTES % (AUTO) 4 % (0-12); NEUTROPHILS # (AUTO) 3.9 10^3/uL (1.8-7.8); NEUTROPHILS % (AUTO) 79 % (42-75); PLATELET COUNT 238 10^3/uL (130-400); WHITE BLOOD COUNT 4.9 10^3/uL (4.3-11.0)
[2021-08-04 16:53] LABS: POTASSIUM 2.9 MMOL/L (3.6-5.0)
[2021-08-04 16:54] LABS: CALCIUM 8.4 MG/DL (8.5-10.1)
[2021-08-04 16:56] LABS: TOTAL PROTEIN 7.7 GM/DL (6.4-8.2)
[2021-08-04 16:57] LABS: BILIRUBIN,TOTAL 0.4 MG/DL (0.1-1.0); PROTHROMBIN TIME PATIENT 13.6 SEC (12.2-14.7)
[2021-08-04 16:59] LABS: CREATININE SERUM 1.25 MG/DL (0.60-1.30)
--- NOTE | 2021-08-04 17:39 | Diagnostic Imaging Report ---
EXAMINATION: Portable chest. Comparison made with a prior study from 11/27/2020. INDICATION: Shortness of breath and hypoxia. FINDINGS: There is abnormal enlargement of the cardiac silhouette with abnormal prominence of the pulmonary vascular markings suggesting volume overload and interstitial edema. There may be small effusions. There is no dense alveolar consolidation or pneumothorax. There are vascular stents within the right neck and the right subclavian and axillary region. IMPRESSION: 1. Enlarged cardiac silhouette with abnormal pulmonary vascular prominence and probable small effusions. Findings are compatible with volume overload and interstitial edema. Dictated by: Dictated on workstation # [id number]
[2021-08-04 17:48] LABS: ABG BASE EXCESS 9.9 MMOL/L (-2.5-2.5); ABG OXYGEN SATURATION 45 % (94-100); ABG PCO2 47 MMHG (35-45); ABG PH 7.47 (7.37-7.43); ABG TCO2 35.8 MMOL/L (21.0-31.0)
[2021-08-04 17:51] LABS: ABG PO2 23 MMHG (79-93); ALLENS TEST POS
[2021-08-04 17:52] LABS: INSPIRED O2 2L; PATIENT TEMP 36; VENTILATOR NO
[2021-08-04] MEDS ORDERED: ONDANSETRON 4 MG/2 ML (SDV) Z0FRAN IVP ONE (18:00)
[2021-08-04 18:29] VITALS: BP 181/74
== END 2021-08-04 18:34 | disposition home or self-care (01) ==
LOC: EDUNIT# 16:12 → ER 16:16
DX: J10.1 Influenza due to other identified influenza virus with other respiratory manifestations (principal); J81.1 Chronic pulmonary edema; I13.2 Hypertensive heart and chronic kidney disease with heart failure and with stage 5 chronic kidney disease, or end stage renal disease; N18.6 End stage renal disease; E78.00 Pure hypercholesterolemia, unspecified; I25.10 Atherosclerotic heart disease of native coronary artery without angina pectoris; J44.9 Chronic obstructive pulmonary disease, unspecified; E03.9 Hypothyroidism, unspecified; Z87.891 Personal history of nicotine dependence; Z20.822 Contact with and (suspected) exposure to COVID-19; Z79.890 Hormone replacement therapy; Z79.01 Long term (current) use of anticoagulants; Z79.82 Long term (current) use of aspirin; Z79.899 Other long term (current) drug therapy
CPT/HCPCS: 36415; 71045; 80053; 82805; 83605; 83880; 84145; 84484; 85025; 85610; 85730; 86141; 87040; 87636; 93005

== ENCOUNTER → 2021-10-14 | Outpatient (CLI) | payer MEDICARE | LOC: RT 14:43 | PROVIDERS: ATTEND Internal Medicine | DX: J44.9 Chronic obstructive pulmonary disease, unspecified (principal) | CPT/HCPCS: 94621; 94761 ==

== ENCOUNTER 2021-12-09 09:54 | Outpatient (RCR) | payer MEDICARE ==
[~2021-12-09] VITALS: Ht 157.5 cm; Wt 54.5 kg
[2021-12-09 10:50] VITALS: BP 0/0
[2021-12-09 15:54] LABS: BILIRUBIN,URINE NEGATIVE (NEGATIVE); CLARITY,URINE CLOUDY; COLOR,URINE YELLOW; GLUCOSE, URINE (UA) NEGATIVE (NEGATIVE); KETONES,URINE NEGATIVE (NEGATIVE); LEUKOCYTE ESTERASE ,URINE 3+ (NEGATIVE); NITRITE,URINE NEGATIVE (NEGATIVE); PH,URINE 5.5 (5-9); PROTEIN,URINE 2+ (NEGATIVE)
[2021-12-09 16:03] LABS: BACTERIA,URINE LARGE /HPF; SQUAMOUS EPITHELIAL CELL,UR 0-2 /HPF; WBC,URINE TNTC /HPF
== END 2021-12-10 11:04 | disposition home or self-care (01) ==
LOC: SDC 09:54
PROVIDERS: ATTEND Internal Medicine
DX: N18.6 End stage renal disease (principal); R82.90 Unspecified abnormal findings in urine
CPT/HCPCS: 81000; 87077; 87088; 87186

== ENCOUNTER 2022-02-12 10:02 | Outpatient (RCR) | payer MEDICARE ==
[~2022-02-12 10:02] MED LIST changes: +LEVO250T66 PO; +LEVO750T PO; -LEVO750T39 PO; -LVF250T PO; -NYST15CR TOP; +NYST15CR35 TOP
[2022-02-12 10:44] VITALS: BP 134/44
== END 2022-03-13 | disposition home or self-care (01) ==
LOC: SDC 10:02
PROVIDERS: ATTEND Internal Medicine
DX: N18.6 End stage renal disease (principal)

== ENCOUNTER → 2022-07-14 | Outpatient (RCR) | payer MEDICARE ==
[2022-07-14 11:25] VITALS: BP 157/65
== END | disposition home or self-care (01) ==
LOC: SDC 11:11
PROVIDERS: ATTEND Internal Medicine
DX: R32 Unspecified urinary incontinence (principal); N18.6 End stage renal disease

== ENCOUNTER 2022-11-12 10:14 | Outpatient (RCR) | payer MEDICARE ==
[2022-11-12 11:30] VITALS: BP 166/67
[2022-11-12 11:39] LABS: BILIRUBIN,URINE NEGATIVE (NEGATIVE); CLARITY,URINE CLEAR; COLOR,URINE YELLOW; GLUCOSE, URINE (UA) NEGATIVE (NEGATIVE); KETONES,URINE NEGATIVE (NEGATIVE); LEUKOCYTE ESTERASE ,URINE NEGATIVE (NEGATIVE); NITRITE,URINE NEGATIVE (NEGATIVE); PH,URINE 5.5 (5-9); PROTEIN,URINE NEGATIVE (NEGATIVE)
[2022-11-12 11:47] LABS: BACTERIA,URINE NEGATIVE /HPF; SQUAMOUS EPITHELIAL CELL,UR 0-2 /HPF
== END 2022-12-11 | disposition home or self-care (01) ==
LOC: SDC 10:14
PROVIDERS: ATTEND Internal Medicine
DX: N18.6 End stage renal disease (principal); Z99.2 Dependence on renal dialysis
CPT/HCPCS: 81000

== ENCOUNTER 2023-02-08 07:55 | Outpatient (RCR) | payer MEDICARE ==
[2023-02-08 08:05] VITALS: BP 140/111
== END 2023-02-11 | disposition home or self-care (01) ==
LOC: SDC 07:55
PROVIDERS: ATTEND Internal Medicine Nephrology
DX: N18.6 End stage renal disease (principal); Z99.2 Dependence on renal dialysis

== ENCOUNTER 2023-05-04 13:26 | Outpatient (CLI) | payer MEDICARE ==
[~2023-05-04] VITALS: Ht 157.5 cm; Wt 56.8 kg
[2023-05-04 13:35] VITALS: BP 167/66
== END 2023-05-04 14:05 | disposition home or self-care (01) ==
LOC: SDC 13:26
PROVIDERS: ATTEND Internal Medicine Nephrology
DX: Z46.6 Encounter for fitting and adjustment of urinary device (principal)